=== PATIENT | female | born 1985 | race Caucasian/White ===

== ENCOUNTER 2022-11-07 20:26 | Emergency (ER) | payer MEDICAID, SELFPAY ==
[2022-11-07 20:51] VITALS: BP 141/91; PULSE 83; RESP 16; TEMP 36.4; O2SAT 98; BMI 26.6
--- NOTE | 2022-11-07 21:04 | ED.DENTAL1 ---
HPI - Dental/Oral General Chief complaint: Dental/Oral Stated complaint: DENTAL PAIN Time Seen by Provider: 11/07/22 21:01 Source: patient Mode of arrival: walk-in History of Present Illness HPI Narrative: patient is a 37-year-old female who presents to the emergency Department for pain in tooth #9, the tooth broke one week ago and patient reports an increase in pain, swelling to the gumline and a metal taste in her mouth. She has had no fevers or vomiting. She denies possibility of . She is regular smoker. Related Data Home Medications Medication Instructions Recorded Confirmed No Known Home Medications 11/07/22 11/07/22 Previous Rx's Medication Instructions Recorded clindamycin HCl 150 mg capsule 300 mg PO Q6H 10 days #80 caps 11/07/22 ketorolac 10 mg tablet 10 mg PO TID PRN pain #10 tabs 11/07/22 ondansetron 4 mg disintegrating 4 mg PO Q6H PRN nausea and 11/07/22 tablet vomiting #12 tabs Allergies Allergy/AdvReac Type Severity Reaction Status Date / Time No Known Drug Allergies Allergy Verified 11/07/22 20:51 Review of Systems ROS Constitutional Denies: fever or chills Ears, nose, mouth, and throat Denies: throat pain Respiratory Denies: shortness of breath or cough Gastrointestinal Denies: nausea or vomiting Musculoskeletal Denies: back pain Integumentary/Breast Denies: rash Neurological Denies: headache Endocrine Denies: excessive urination Allergic/Immunologic Denies: hives Exam Narrative Exam Narrative: Gen.: Awake, alert, in no distress Head: Normocephalic, atraumatic ENT: Moist mucous membranes, multiple dental caries and poor dental hygiene. Tooth #9 is broken at the mid tooth, gumline is mildly edematous with no focal abscess or drainage. No trismus or drooling. No redness or swelling under the tongue. Airway widely open and patent with clear speech. Respiratory: No respiratory distress Extremities: Moves extremities equally Psych: Normal mood and affect Neuro: No focal neuro deficit Skin: Warm, dry, intact Constitutional Vital Signs, click to edit/add: Last Vital Signs Temp 97.6 F 11/07/22 20:51 Pulse 83 11/07/22 20:51 Resp 16 11/07/22 20:51 BP 141/91 H 11/07/22 20:51 Pulse Ox 98 11/07/22 20:51 O2 Del Method Room Air 11/07/22 21:00 Course Vital Signs Vital signs: Vital Signs Temperature 97.6 F 11/07/22 20:51 Pulse Rate 83 11/07/22 20:51 Respiratory Rate 16 11/07/22 20:51 Blood Pressure 141/91 H 11/07/22 20:51 Pulse Oximetry 98 11/07/22 20:51 Oxygen Delivery Method Room Air 11/07/22 20:51 Temperature 97.6 F 11/07/22 20:51 Pulse Rate 83 11/07/22 20:51 Respiratory Rate 16 11/07/22 20:51 Blood Pressure 141/91 H 11/07/22 20:51 Pulse Oximetry 98 11/07/22 20:51 Oxygen Delivery Method Room Air 11/07/22 21:00 MDM - Dental/Oral MDM Narrative Medical decision making narrative: exam is consistent with dental caries, possible early dental infection with no focal abscess at this time. Patient treated with topical analgesia, ten days of clindamycin and NSAIDs for comfort. She is referred to dental clinic. Return to the Emergency Room if symptoms change or worsen. Attending physician attestation I have reviewed the mid-level documentation, agree with the documentation, medical decision making and treatment plan as outlined by the mid-level provider. Medical Records Attestation: I reviewed the patient's medical records. Discharge Plan Discharge Chief Complaint: Dental/Oral Clinical Impression: Dental caries, Toothache, Fracture of tooth Patient Disposition: Home, Self-Care Time of Disposition Decision: 21:02 Condition: Good Prescriptions / Home Meds: New clindamycin HCl 150 mg capsule 300 mg PO Q6H 10 Days Qty: 80 0RF ketorolac 10 mg tablet 10 mg PO TID PRN (Reason: pain) Qty: 10 0RF ondansetron 4 mg tablet,disintegrating 4 mg PO Q6H PRN (Reason: nausea and vomiting) Qty: 12 0RF No Action No Known Home Medications Instructions: Toothache (ED) Additional Instructions: Follow up dental Stand Alone Forms: Portal Instructions Referrals: Physician,Non-Staff, MD [Primary Care Provider] - 1 week Discharge Date/Time: 11/07/22 21:43
[2022-11-07] MEDS: BENZOCAINE 30 ML, lidocaine HCL 15 ML MM (21:29)
== END 2022-11-07 21:43 | disposition home or self-care (01) ==
PROVIDERS: Emergency Provider Emergency Medicine
DX: S02.5XXA Fracture of tooth (traumatic), initial encounter for closed fracture (principal); K02.9 Dental caries, unspecified; K08.89 Other specified disorders of teeth and supporting structures; F17.210 Nicotine dependence, cigarettes, uncomplicated; X58.XXXA Exposure to other specified factors, initial encounter
CPT/HCPCS: 99283

== ENCOUNTER 2024-03-05 11:12 | Emergency (ER) | payer MEDICAID, SELFPAY ==
[2024-03-05 11:31] VITALS: BP 136/86; PULSE 75; TEMP 36.7; O2SAT 100; BMI 26.6
[2024-03-05 12:33] LABS: Influenza Virus A Antigen Negative; Influenza Virus B Antigen Negative; Internal Control Within Normal Limits; SARS-CoV-2 Ag NEGATIVE (NEGATIVE); Strep A Antigen Screen Negative
== END 2024-03-05 12:55 | disposition left against medical advice (07) ==
PROVIDERS: Emergency Provider Emergency Medicine
DX: J02.9 Acute pharyngitis, unspecified (principal); Z53.21 Procedure and treatment not carried out due to patient leaving prior to being seen by health care provider
CPT/HCPCS: 87070; 87804; 87811; 87880; 99281; 99283

== ENCOUNTER 2024-06-06 14:25 | Emergency (ER) | payer MEDICAID, SELFPAY ==
--- OUTSIDE RECORDS SUMMARY | 2024-06-06 14:37 | XMS_ITS | CCD ---
Author Organization [facility] Care Team Providers Care Associate Product Manager Name Role Phone HOUSE, SR CLEMENCIA Perkins Primary Care Unavailable MIKEY HOFF Referring Unavail able MARKER, DR ZHOU Admitting Unavailable MARKER, DR ZHOU Attending Unavailable MARKER, DR ZHOU Consulting Unavailable HOUSE, DR KHANNA Primary Care Unavailable HAY, DR TOM Attending Unavailable HAY, DR TOM Consulting Unavailable HAY, DR TOM Admitting Unavailable HOUSE, DR KHANNA Primary Care Unavailable HAY, DR TOM Attending Unavailable THEODORE, JULIEN KUMAR Consulting Unavailable HAY, DR TOM Admitting Unavailable HOUSE, DR KHANNA Primary Care Unavailable HOUSE, DR KHANNA Primary Care Unavailable MARKER, DR ZHOU Admitting Unavailable MARKER, DR ZHOU Attending Unavailable MARKER, DR ZHOU Consulting Unavailable CEDEÑO, EMY Admitting Unavailable CEDEÑO, EMY Attending Unavailable CEDEÑO, EMY Consulting Unavailable HOUSE, DR KHANNA Primary Care Unavailable Georgie Chow Unavailable Ivy Moreau Unavailable Allergies Allergy Classification Reported Allergen(s) Allergy Type Date of Onset Reaction(s) Facility (1 source) bee venom Drug allergy (disorder) 5 [facility] (1 source) Honey Drug allergy (disorder) 5 [facility] (1 source) Bee pollen Allergy to substance 4 [facility] (1 source) bee venom protein (honey bee) Allergy to substance 4 Unknown Reaction [facility] Medications Current Medications Medication Drug Class(es) Dates Sig (Normalized) Sig (Original) cephalexin 500 mg oral capsule (1 source) Cephalosporin Antibacterial Start: 01-29-2023 take 1 capsule by mouth every eight hours Cephalexin 500 MG 1 capsule Orally tid for 10 day(s) Jan, Active clindamycin 150 mg oral capsule (2 sources) Lincosamide Antibacterial take 2 capsules by mouth every six hours Clindamycin HCl 150 MG 2 capsules Orally every 6 hrs Active diphenhydrAMINE hydrochloride 25 mg oral tablet (1 source) Histamine-1 Receptor Antagonist take 1 tablet by mouth every twenty-four hours Benadryl Allergy 25 MG 1 tablet at bedtime as needed Orally Once a day Active doxycycline hyclate 100 mg oral capsule (2 sources) Tetracycline-class Drug Start: 11-13-2023 take 100 mg by mouth twice daily Doxycycline Hyclate Active 100 MG PO Twice daily 01 11November 13, 2023 12:00am Completed/Discontinued Medications Medication Drug Class(es) Dates Sig (Normalized) Sig (Original) amoxicillin 875 mg / clavulanate 125 mg oral tablet (4 sources) Penicillin-class Antibacterial Start: 09-01-2023 End: 11-13-2023 take 1 tablet by mouth every twelve hours Amoxicillin-Pot Clavulanate Discontinued 1 TAB PO Every 12 hours 07 02September 01, 2023 12:00am November 13, 2023 6:35pm Start: 11-16-2022 take 1 tablet by xiomara th every twelve hours Amoxicillin-Pot Clavulanate 875-125 MG 1 tablet Orally every 12 hrs for 10 days Oct, Not-Taking Benadryl Allergy 25 MG (1 source) take 1 tablet by xiomara th once daily at bedtime as needed Benadryl Allergy 25 MG 1 tablet at bedtime as needed Orally Once a day Not-Taking DayQuil Multi-Symptom (2 sources) DayQuil Multi-Sy mptom Not-Taking DayQuil Multi-Sy mptom Active Ketorolac (4 sources) Nonsteroidal Anti-inflammatory Drug, Cyclooxygenase Inhibitor Start: 12-21-2019 Toradol p er 15 mg Dec, 60 mg Start: 02-08-2019 Toradol per 15 mg Jan, 60 mg NyQuil (2 sources) NyQuil Not-Takin g NyQuil Active Problems Active Problems Problem Classification Problem Date Documented Da te Episodic/Chronic Disorders of teeth and jaw (14 sources) Other specified disorders of teeth and supporting structures; Translations: [Periodontal disease, unspecified] Onset: 12-07-2020 Episodic Other skin disorders (2 sources) Hidradenitis suppurativa; Translations: [Hidradenitis suppurativa] 09-01-2023 Episodic Other skin disorders (1 source) Hidradenitis suppurativa; Translations: [Hidradenitis] 09-01-2023 Episodic Other upper respiratory infections (4 sources) Acute pharyngitis, unspecified; Translations: [Streptococcal pharyngitis] Episodic Skin and subcutaneous tissue infections (4 sources) Cellulitis of left lower limb; Translations: [Local infection of the skin and subcutaneous tissue, unspecified] Episodic Substance-related disorders (1 source) Nicotine dependence, cigarettes, uncomplicated; Translations: [NICOTINE DEPEND CIGARETTES UNCOMP] Onset: 09-12-2021 Chronic Past or Other Problems Problem Classification Problem Date Documented Date Episodic/Chronic Immunizations and screening for infectious disease (1 source) Encounter for screening for human papillomavirus (HPV); Translations: [ENC SCREENING HUMAN PAPILLOMAVIRUS] Onset: 10-05-2020 Episodic Other ear and sense organ disorders (4 sources) Otalgia, bilateral; Translations: [OTALGIA BILATERAL] Onset: 01-23-2021 Episodic Other ear and sense organ disorders (4 sources) Otalgia, right ear; Translations: [OTALGIA RIGHT EAR] Onset: 12-06-2020 Episodic Other screening for suspected conditions (not mental disorders or infectious disease) (4 sources) Encounter for screening for malignant neoplasm of cervix; Translations: [ENC SCREENING MALIG NEOPLASM CERV] Onset: 10-02-2020 Episodic Other skin disorders (4 sources) Localized swelling, mass and lump, head; Translations: [LOCALIZED SWELLING MASS AND LUMP HEAD] Onset: 04-08-2021 Episodic Skull and face fractures (1 source) Fracture of tooth (traumatic), initial encounter for closed fracture; Translations: [FX TOOTH TRAUMAT INIT ENC CLOS FX] Onset: 01-25-2021 Episodic Results Test Name Value Interpretation Reference Range Facil ity Quick Strepon 11-16-2022 S. pyogenes Org specific cx Ql (Throat) Positive [facility] Other Quick Strep [facility] Other HPV DNA High Riskon 08-12-19 22 HPV Interp Normal [facility] Comment on above: Result Comment: This test amplifies and detects DNA of 14 high-risk HPV types associated with cervical cancer and its precursor lesions (HPV types 16,18, 31, 33, 35, 39, 45, 51, 52, 56, 58, 59, 66, and 68). Sensitivity may be affected by specimen collection methods, stage of infection, and the presence of interfering substances. Results should be interpreted in conjunction with other available laboratory and clinical data. A negative high-risk HPV result does not exclude the possibility of future cytologic HSIL or underlying CIN2-3 or cancer. This test is intended for medical purposes only and is not valid for the evaluation of suspected sexual abuse or for other forensic purposes. Performed By: #### H PVH #### [address] [address] Curriculum Supervisor: Izaiah Garza MD HPV Type 16 Not detected [facility] Comment on above: Performed By: #### HPVH #### [address] [address] Curriculum Supervisor: Izaiah Garza MD HPV Type 18 Not detected [facility] Comment on above: Performed By: #### HPVH #### [facility] [employer] [address] [place] [id number] Curriculum Supervisor: Izaiah Garza MD Other High Risk HPV Not detected [facility] Comment on above: Performed By: #### HPVH #### [address] [address] Curriculum Supervisor: Izaiah Garza MD HPV DNA High Riskon 08-10- 22 Source .GENITAL - NOT SPECIFIED [facility] Comment on above: Performed By: #### HPVH #### [facility] [employer] [address] [place] [address] Curriculum Supervisor: Izaiah Garza MD HPV DNA High Riskon 08-09-20 22 HPV Sample .THIN PREP [facility] Comment on above: Performed By: #### HPVH #### [address] [address] Curriculum Supervisor: Izaiah Garza MD Cytologyon 08-07-2021 Cytology (NOTE) INTERPRETATION Cervical material, (ThinPrep vial, Imaging-assisted review): Specimen Adequacy: Satisfactory for evaluation. -Endocervical/transfor mation zone component is absent. Descriptive Diagnosis: Negative for intraepithelial lesion or malignancy. Supervisor Sandblaster: JUSTINA Miller(ASCP) Electronically Signed Out /08/15/2021 Procedure/Addendum HPV Procedure Report Date Ordered: 08/09/2021 Status: Signed Out Date Complete: 08/11/2021 By: System Interface Date Reported: 08/11/2021 Sample: HPV Type 16 Result: Not Detected Ref Range: (Not Detected) Sample: HPV Type 18 Result: Not Detected Ref Range: (Not Detected) Sample: Other High Risk HPV Result: Not Detected Ref Range: (Not Detected) Sample: HPV Interp Result: Ref Range: (Not Detected) This test amplifies and detects DNA of 14 high-risk HPV types associated with cervical cancer and its precursor lesions (HPV types 16,18, 31, 33, 35, 39, 45, 51, 52, 56, 58, 59, 66, and 68). Sensitivity may be affected by specimen collection methods, stage of infection, and the presence of interfering substances. Results should be interpreted in conjunction with other available laboratory and clinical data. A negative high-risk HPV result does not exclude the possibility of future cytologic HSIL or underlying CIN2-3 or cancer. This test is intended for medical purposes only and is not valid for the evaluation of suspected sexual abuse or for other forensic purposes. Source: A: Cervical material, (ThinPrep vial, Imaging-assisted review) Clinical History Z01.419 Routine trans router exam without abnormal findings Co-Test: ThinPrep Pap with high risk HPV testing GYNECOLOGIC CYTOLOGY REPORT Patient Name: ADRIENNE PATEL [facility] Rec: [id number] Path Number: [id number] [facility] ANATOMIC PATHOLOGY [address] [place] [id number] [facility] Comment on above: Performed By: #### PPPVP #### [facility] [address] [place] [address] Curriculum Supervisor: Izaiah Garza MD Pap IG, rfx Aptima HPV, rfx 16/18,45on 10-05-2020 . . Normal [facility] Comment on above: Result Comment: Performed at: WB Performed By: #### P APHR2A #### [facility] [address] [place] [address] Tamara Mars DIAGNOSIS: Comment Normal [facility] Comment on above: Result Comment: NEGATIVE FOR INTRAEPITHE LIAL LESION OR MALIGNANCY. Performed at: WB Performed By: #### P APHR2A #### [facility] [address] [address] Tamara Madisyn HPV Aptima Negative Normal Negative [facility] Comment on above: Result Comment: This nucleic acid amplif ication test detects fourteen high-risk HPV types (16,18,31,33,35,39,45,51,52,56,58,59,66,68) without differentiation. Performed at: =G Performed By: #### P APHR2A #### [facility] [address] [place] [address] Tamara Mars Methodology: Comment Normal [facility] Comment on above: Result Comment: This liquid based ThinPr ep(R) pap test was screened with the use of an image guided system. Performed at: WB Performed By: #### P APHR2A #### [facility] [address] [place] [address] Tamara Madisyn Note: Comment Normal [facility] Comment on above: Result Comment: The Pap smear is a scree janny test designed to aid in the detection of premalignant and malignant conditions of the uterine cervix. It is not a diagnostic procedure and should not be used as the sole means of detecting cervical cancer. Both false-positive and false-negative reports do occur. . Performed at: WB Performed By: #### P APHR2A #### [facility] [address] [place] [address] Tamara Madisyn Performed by: Comment Normal [facility] Comment on above: Result Comment: Jumana guzman, Supervisor Sandblaster (ASCP) Performed at: WB Performed By: #### P APHR2A #### [facility] [address] [place] [address] Tamara Mars Specimen adequacy: Comment Normal [facility] Comment on above: Result Comment: Satisfactory for evaluat ion. Endocervical and/or squamous metaplastic cells (endocervical component) are present. Performed at: WB Performed By: #### P APHR2A #### [facility] [address] [place], [place] [address] Tamara Mars Vital Signs Date Time Vital Sign Value Performing Clinician Facility 01-14-2024 14:53-0400 Body height 162.56 cm [facility] 01-14-2024 14:53-0400 Body mass index (BMI) [Ratio] 27.4 kg/m2 [facility] 01-14-2024 14:53-0400 Body temperature 97.8 [degF] [facility] 01-14-2024 14:53-0400 Body weight 72.63 kg [facility] 01-14-2024 14:53-0400 Diastolic blood pressure 74 mm[Hg] [facility] 01-14-2024 14:53-0400 Heart rate 77 /min [facility] 01-14-2024 14:53-0400 Respiratory rate 17 /min [facility] 01-14-2024 14:53-0400 SaO2% (BldA) [Mass fraction] 98 % [facility] 01-14-2024 14:53-0400 Systolic blood pressure 122 mm[Hg] [facility] 11-13-2023 18:40-0400 Body height 165.1 cm [facility] 11-13-2023 18:40-0400 Body mass index (BMI) [Ratio] 25.1 kg/m2 [facility] 11-13-2023 18:40-0400 Body temperature 98.4 [degF] [facility] 11-13-2023 18:40-0400 Body weight 68.49 kg [facility] 11-13-2023 18:40-0400 Heart rate 69 /min [facility] 11-13-2023 18:40-0400 Respiratory rate 18 /min [facility] 11-13-2023 18:40-0400 SaO2% (BldA) [Mass fraction] 99 % [facility] 09-01-2023 17:19-0400 Body height 165.1 cm [facility] 09-01-2023 17:19-0400 Body mass index (BMI) [Ratio] 26.9 kg/m2 [facility] 09-01-2023 17:19-0400 Body temperature 98.4 [degF] [facility] 09-01-2023 17:19-0400 Body weight 73.25 kg [facility] 09-01-2023 17:19-0400 Diastolic blood pressure 75 mm[Hg] [facility] 09-01-2023 17:19-0400 Heart rate 77 /min [facility] 09-01-2023 17:19-0400 Respiratory rate 18 /min [facility] 09-01-2023 17:19-0400 SaO2% (BldA) [Mass fraction] 99 % [facility] 09-01-2023 17:19-0400 Systolic blood pressure 119 mm[Hg] [facility] 01-29-2023 13:55-0400 Body height 165.1 cm Ivy Lizzeth Other [facility] [employer] Other 01-29-2023 13:55-0400 Body mass index (BMI) [Ratio] 27.95 kg/m2 Ivy Lizzeth Other [facility] Other 01-29-2023 13:55-0400 Body temperature 97.7 [degF] Ivy Lizzeth Other [facility] Other 01-29-2023 13:55-0400 Body weight 76.2 kg Ivy Lizzeth Other [facility] Other 01-29-2023 13:55-0400 Diastolic blood pressure 74 mm[Hg] Ivy Lizzeth Other [facility] Other 01-29-2023 13:55-0400 Respiratory rate 18 /min Ivy Moreau Other [facility] Other 01-29-2023 13:55-0400 SaO2% (BldA) [Mass fraction] 98 % Ivy Moreau Other [facility] Other 01-29-2023 13:55-0400 Systolic blood pressure 124 mm[Hg] Ivy Moreau Other [facility] Other 11-16-2022 12:25-0400 Body height 165.1 cm Georgie Chow Other [facility] Other 11-16-2022 12:25-0400 Body mass index (BMI) [Ratio] 27.39 kg/m2 Georgie Chow Other [facility] Other 11-16-2022 12:25-0400 Body temperature 98.1 [degF] Georgie Chow Other [facility] Other 11-16-2022 12:25-0400 Body weight 74.66 kg Georgie Chow Other [facility] Other 11-16-2022 12:25-0400 Respiratory rate 18 /min Georgie Chow Other [facility] Other 11-16-2022 12:25-0400 SaO2% (BldA) [Mass fraction] 97 % Georgie Chow Other [facility] Other Encounters Encounter Date Encounter Type Care Provider Facility Start: 01-14-2024 End: 01-14-2024 [facility] Work Phone: Start: 01-14-2024 End: 01-14-2024 Patient encounter procedure Counts Include [facility] Work Phone: Start: 11-13-2023 End: 11-13-2023 ambulatory [facility] Work Phone: Start: 11-13-2023 End: 11-13-2023 Patient encounter procedure Counts Include [facility] Work Phone: Start: 09-01-2023 End: 09-01-2023 ambulatory [facility] Work Phone: Start: 09-01-2023 End: 09-01-2023 Patient encounter procedure Counts Include [facility] Work Phone: Start: 01-29-2023 End: 01-29-2023 ambulatory Ivy Moreau Other [facility] Other Start: 01-29-2023 Office outpatient vi sit 15 minutes Ivymaikel Moreau [facility] Start: 11-16-2022 End: 11-16-2022 ambulatory Georgie Chow Other [facility] Other Start: 11-16-2022 Office outpatient vi sit 15 minutes Georgie Chow [facility] Start: 09-11-2021 End: 09-11-[address] CLEMENCIA ZAMORA Facility:[facility] Start: 08-07-2021 End: 08-08-2021 ambulatory SR CLEMENCIA ZAMORA [facility] Start: 04-08-2021 End: 04-08-[address] VAISHALI KELLY Facility:[facility] Start: 01-23-2021 End: 01-23-[address] VAISHALI KELLY Facility:[facility] Start: 12-06-2020 End: 12-06-[address] WINNIE DEL ANGEL Facility:[facility] Start: 10-02-2020 End: 10-02-2020 ambulatory EMY CEDEÑO Facility:[facility] Payers Date Payer Category Payer Unknown [id number] 2.16.8 [id number] 1987 Unknown [id number] 2.16.84 [id number] 1987 Unknown [id number] 2.16.84 [id number] 1987 Unknown [id number] 2.16.84 [id number] 1987 Unknown [id number] 2.16.84 [id number] 1987 Unknown [id number] 2.16.84 [id number] 1959 Unknown [id number] 1959 Unknown [id number] Medicaid [id number] Self-pay Self Pay [id number] Social History Date Type Detail Facility Unknown if ever smoked [facility] Other Sex Assigned At Sex Assigned At Bir th [facility] Other Start: 09-01-2023 Tobacco smoking status [facility] Smoker (finding) [facility] Start: 1985 Sex Assigned At Female F [facility] Evaluation note 01-29-2023 Note Date & Type Note Facility 01-29-2023 Evaluation note Encounter Date Diagnosis Assessment Notes Jan, Cellulitis of left lower leg (ICD-10 - L03.116) Cellulitis: adult home care material was printed Drink plenty fluids, get plenty of rest. Take cephalexin as prescribed until gone. Apply warm compresses to the areas 2-3 times a day. Take Benadryl as needed for itching. You may apply hydrocortisone cream to the area as well. Follow-up with your family physician if no improvement in 2 to 3 days Jan, Local infection of the skin and subcutaneous tissue, unspecified (ICD-10 - L08.9) [facility] Other Evaluation note 11-16-2022 Note Date & Type Note Facility 11-16-2022 Evaluation note Encounter Date Diagnosis Assessment Notes Oct, Sore throat (ICD-10 - J02.9) Oct, Strep pharyngitis (ICD-10 - J02.0) Rapid strep positive. Discussed strep is a bacterial throat infection. Will treat with augmentin, has completed 7-1/2 days of clindamycin for dental infection. Strep still remains positive in office. Discontinue clindamycin. Covering with Augmentin for strep and any remaining dental infection. Discussed importance of finishing entire course of antibiotic. Recommend changing toothbrush and washing bedding after 48 hours on antibiotic to avoid re-exposure. Discussed less contagious after 24 hours on antibiotic. Avoid sharing cups or drinks. May use Tylenol/ibuprofe n, warm salt water gargles, topical throat sprays or throat lozenges for symptomatic treatment. Fluids/rest encouraged. Follow-up with PCP if not gradually improving over the next 4 to 5 days or continuing fever. Patient/parent verbalized understanding of treatment plan. [facility] Other Evaluation note Note Date & Type Note Facility Evaluation note No assessment information availa [facility] Work Phone: Evaluation note Note Date & Type Note Facility Evaluation note Diagnosis Onset Date Dental infection acute Hidradenitis suppurativa acu te Jaw pain acute [facility] Work Phone: Evaluation note Note Date & Type Note Facility Evaluation note Diagnosis Onset Date Abscess of buttock, left acu te Viral URI with cough [facility] Work Phone: History general Narrative - Reported Note Date & Type Note Facility History general Narrative - Reported Type Medical History Scoliosis Medical History fibromyalgia Medical History mood disorder Surgical History etopic wit h the removal of her tube and ovary. Left side. 2005 Hospitalization History see above Hospitalization History child [facility] Other Summary Purpose Family History Relationship Condition Age at Onset Recorded Date/T cody father Unknown Hypertension Unknown Not Specified Malignant neoplasm Unknown Unknown Relationship Condition Age at Onset Recorded Date/T cody father Unknown Hypertension Unknown mother Malignant neoplasm Unknown Unknown Advance Directives Advance Directive Response Recorded Date/ Time Advance Directives No August 31 4 5:12pm Chief Complaint and Reason for Visit Chief Complaint rash on face/neck,antony il on thigh,infected tooth Chief Complaint rash on face/neck,antony il on thigh,infected tooth Sore throat, congestion, bug bite on buttocks Reason for Visit Dental infection Hidradenitis suppurativa Jaw pain Chief Complaint Sore throat, congest ion, bug bite on buttocks Sinus congestion Reason for Visit Abscess of buttock, left Viral URI with cough Additional Source Comments INFORMATION SOURCE (unrecogn ized section and content) DATE CREATED AUTHOR 08/18/2021 [facility] DATE CREATED AUTHOR AUTHOR'S ORGANIZ ATION 09/13/2021 [facility] REASON FOR VISIT (unrecogniz ed section and content) FEELS HOT AND THEN COLD, SOR E THROAT, DRAINAGESPIDER BITE, SWELLING AND PAIN Care Teams (unrecognized sec tion and content) Team Status: Active Member Role Status Dates PHYSICIAN NO FAMILY Primary Care Provider Active Team Status: Inactive Member Role Status Dates PHYSICIAN NO FAMILY Primary Care Provider Active Start: September 01, 2023 End: September 01, 2023 Georgie Chow APRN Attending Provider Active Start: September 01, 2023 End: September 01, 2023 Team Status: Inactive Member Role Status Dates PHYSICIAN NO FAMILY Primary Care Provider Active Start: November 13, 2023 End: November 13, 2023 Georgie Chow APRN Attending Provider Active Start: November 13, 2023 End: November 13, 2023 Team Status: Inactive Member Role Status Dates PHYSICIAN NO FAMILY Primary Care Provider Active Start: January 14, 2024 End: January 14, 2024 Shelby Rosales APRN Attending Provider Active S tart: January 14, 2024 End: January 14, 2024 Goals (unrecognized section and content) Goals may be documented in a n alternate section FOR RECORDS PERTAINING TO PATIENTS WHO ARE OR HAVE BEEN ENROLLED IN A CHEMICAL DEPENDENCY/SUBSTANCEABUSE PROGRAM, SOME INFORMATION MAY BE OMITTED. This clinical summary was aggregated from multiple sources. Caution should be exercised in using it in the provision of clinical care. This summary normalizes information from multiple sources, and as a consequence, information in this document may materially change the coding, format and clinical context of patient data. In addition, data may be omitted in some cases. CLINICAL DECISIONS SHOULD BE BASED ON THE PRIMARY CLINICAL RECORDS. [facility] [employer] [facility]. provides no warranty or guarantee of the accuracy or completeness of information in this document.
[2024-06-06 14:59] VITALS: BP 134/81; PULSE 88; TEMP 36.6; O2SAT 99; BMI 28.3
--- NOTE | 2024-06-06 15:28 | ED_ITS ---
HPI - URI/Sore Throat General Chief Complaint: Upper Respiratory Infection Stated Complaint: URTI COMPLAINTS Time Seen by Provider: 06/06/24 15:14 Source: patient History of Present Illness HPI Narrative: Patient is a 39-year-old female who presents to the emergency department for a weeklong history of cough and congestion. She is also complaining of an acne- like rash over the upper back. Her son is being evaluated for upper respiratory symptoms as well. She reports nonproductive coughing, nasal and chest congestion. No objective fevers. No vomiting or diarrhea. She has no concern for . She states she has a history of acne but feels as though this rash to her upper back for the last several weeks is worse than normal. No drainage. Related Data Home Medications ?Medication ?Instructions ?Recorded ?Confirmed dextromethorphan HBr 5 mg/5 mL 30 mg PO ONCE PRN cough 06/06/24 06/06/24 oral syrup (Vicks DayQuil Cough) Previous Rx's ?Medication ?Instructions ?Recorded amoxicillin 875 mg-potassium 1 tab PO Q12H #20 tabs 06/06/24 clavulanate 125 mg tablet ucifnyltzvsaywc-voucgetokotuuxd-BF 10 ml PO Q6H PRN cold symptoms 06/06/24 2 mg-30 mg-10 mg/5 mL oral syrup #200 mL (Bromfed DM) fluconazole 150 mg tablet 150 mg PO QWEEK 2 days #2 tabs 06/06/24 mupirocin 2 % topical ointment 1 applic topical BID #15 grams 06/06/24 Allergies Allergy/AdvReac Type Severity Reaction Status Date / Time No Known Drug Allergies Allergy Verified 06/06/24 14:58 Review of Systems ROS Constitutional Denies: fever or chills Ears, nose, mouth, and throat Reports: nasal congestion; Denies: throat pain Cardiovascular Denies: chest pain Respiratory Reports: cough; Denies: shortness of breath Gastrointestinal Denies: nausea, vomiting or diarrhea Integumentary/Breast Reports: rash and redness Hematologic/Lymphatic Denies: easy bruising or easy bleeding PFSH PFSH Social History Little interest or pleasure in doing things: not at all Feeling down, depressed, or hopeless: not at all Exam Narrative Exam Narrative: Gen.: Awake, alert, in no distress Head: Normocephalic, atraumatic ENT: Moist mucous membranes, bilateral TMs clear Respiratory: No respiratory distress, lungs clear bilaterally, dry cough with no wheezing or rhonchi Cardio: Regular rate and rhythm Extremities: Moves extremities equally Psych: Normal mood and affect Neuro: No focal neuro deficit Skin: Warm, dry, intact; rash to the thoracic back and posterior shoulders noted consistent with acne versus folliculitis with occasional pustules noted Constitutional Vital Signs, click to edit/add: Last Vital Signs Temp 97.8 F 06/06/24 14:59 Pulse 88 06/06/24 14:59 Resp 14 06/06/24 14:59 BP 134/81 06/06/24 14:59 Pulse Ox 99 06/06/24 14:59 O2 Del Method Room Air 06/06/24 14:59 Course Vital Signs Vital signs: Vital Signs Temperature 97.8 F 06/06/24 14:59 Pulse Rate 88 06/06/24 14:59 Respiratory Rate 14 06/06/24 14:59 Blood Pressure 134/81 06/06/24 14:59 Pulse Oximetry 99 06/06/24 14:59 Oxygen Delivery Method Room Air 06/06/24 14:59 Temperature 97.8 F 06/06/24 14:59 Pulse Rate 88 06/06/24 14:59 Respiratory Rate 14 06/06/24 14:59 Blood Pressure 134/81 06/06/24 14:59 Pulse Oximetry 99 06/06/24 14:59 Oxygen Delivery Method Room Air 06/06/24 14:59 MDM - URI/Sore Throat MDM Narrative Medical decision making narrative: Respiratory swabs are negative, patient will be treated based on the duration for her upper respiratory symptoms and acne/folliculitis type rash to the back with Augmentin, Bromfed-DM and Bactroban ointment. Decadron given in the ER. She request Diflucan for history of yeast infections. Follow-up with PCP and return to the ER if symptoms change or worsen SUPERVISED APC VISIT, PHYSICIAN ATTESTATION: Based on the medical record the care appears appropriate. ? Medical Records Attestation: I reviewed the patient's medical records. Lab Data Labs: Lab Results 06/06/24 Range/Units 15:05 Influenza Type A Ag Negative Influenza Type B Ag Negative SARS-CoV-2 Ag (CV2AG) Negative (NEGATIVE) Discharge Plan Discharge Chief Complaint: Upper Respiratory Infection Clinical Impression: Upper respiratory infection, Folliculitis Patient Disposition: Home, Self-Care Time of Disposition Decision: 15:47 Condition: Good Prescriptions / Home Meds: New mupirocin 2 % ointment 1 applic topical BID Qty: 15 0RF ekqmnfeejhrsqul-pwxfbhibn-YE [Bromfed DM] 2-30-10 mg/5 mL syrup 10 ml PO Q6H PRN (Reason: cold symptoms) Qty: 200 0RF amoxicillin-pot clavulanate 875-125 mg tablet 1 tab PO Q12H Qty: 20 0RF fluconazole 150 mg tablet 150 mg PO QWEEK 2 Days Qty: 2 0RF Rx Instructions: 1 tab to be taken at the beginning and end of the course of antibiotics No Action Vicks DayQuil Cough 5 mg/5 mL syrup 30 mg PO ONCE PRN (Reason: cough) Print Language: Nigerian Instructions: Upper Respiratory Infection (ED), Folliculitis (ED) Referrals: Physician,Non-Staff, MD [Primary Care Provider] - 1 week
[2024-06-06 15:34] LABS: Influenza Virus A Antigen Negative; Influenza Virus B Antigen Negative; Internal Control Within Normal Limits; SARS-CoV-2 Ag NEGATIVE (NEGATIVE)
[2024-06-06] MEDS: DEXAMETHASONE SOD PHOS 10 MG/ML VIAL PO (15:38)
== END 2024-06-06 15:52 | disposition home or self-care (01) ==
PROVIDERS: Emergency Provider Emergency Medicine
DX: J06.9 Acute upper respiratory infection, unspecified (principal); L73.9 Follicular disorder, unspecified
CPT/HCPCS: 87804; 87811; 99283; J1100

== ENCOUNTER 2024-07-11 14:13 | Emergency (ER) | payer MEDICAID, SELFPAY ==
[2024-07-11 14:16] VITALS: BP 122/70; PULSE 70; TEMP 36.7; O2SAT 98; BMI 24.9
--- OUTSIDE RECORDS SUMMARY | 2024-07-11 14:22 | XMS_ITS | CCD ---
Author Organization [facility] Care Team Providers Care Powerhouse Oiler Name Role Phone HOUSE, SR CLEMENCIA Perkins [...] bee venom Drug allergy (disorder) 5 [facility] (1 source) Honey Drug allergy (disorder) 5 [facility] (1 source) Bee pollen Allergy to substance 4 [facility] (1 source) bee venom protein (honey bee) Allergy to substance 4 Unknown Reaction [facility] Medications Current Medications Medication Drug Class(es) Dates [...] pyogenes Org specific cx Ql (Throat) Positive [facility] Other Quick Strep [facility] Other HPV DNA High Riskon 08-12-19 22 HPV Interp Normal [facility] Comment on above: Result Comment: This test [...] purposes. Performed By: #### H PVH #### [address] [address] [employer] Shipper: Izaiah Garza MD HPV Type 16 Not detected [facility] Comment on above: Performed By: #### HPVH #### [address] [address] [employer] Shipper: Izaiah Garza MD HPV Type 18 Not detected [facility] Comment on above: Performed By: #### HPVH #### [facility] [address] [place] [address] [employer] Shipper: Izaiah Garza MD Other High Risk HPV Not detected [facility] Comment on above: Performed By: #### HPVH #### [address] [address] [employer] Shipper: Izaiah Garza MD HPV DNA High Riskon 08-10- 22 Source .GENITAL - NOT SPECIFIED [facility] Comment on above: Performed By: #### HPVH #### [facility] [address] [place] [address] [employer] Shipper: Izaiah Garza MD HPV DNA High Riskon 08-09-20 22 HPV Sample .THIN PREP [facility] Comment on above: Performed By: #### HPVH #### [address] [address] [employer] Shipper: Izaiah Garza MD Cytologyon 08-07-2021 Cytology (NOTE) INTERPRETATION Cervical material, (ThinPrep vial, Imaging-assisted review): Specimen Adequacy: Satisfactory for evaluation. -Endocervical/transfor mation zone component is absent. Descriptive Diagnosis: Negative for intraepithelial lesion or malignancy. [employer] Maker: JUSTINA Miller(ASCP) Electronically Signed Out /08/15/2021 Procedure/Addendum [...] vial, Imaging-assisted review) Clinical History Z01.419 Routine steward/stewardess economy class exam without abnormal findings Co-Test: ThinPrep Pap with high risk HPV testing GYNECOLOGIC CYTOLOGY REPORT Patient Name: ADRIENNE PATEL [facility] Rec: [id number] Path Number: [id number] [employer] [facility] ANATOMIC PATHOLOG[facility] [address] [place] [id number] [facility] Comment on above: Performed By: #### PPPVP #### [employer] [address] [place] [address] [employer] Shipper: Izaiah Garza MD Pap IG, rfx Aptima HPV, rfx 16/18,45on 10-05-2020 . . Normal [facility] Comment on above: Result Comment: Performed at: WB Performed By: #### P APHR2A #### [facility] [address] [place] [address] Tamara Mars DIAGNOSIS: Comment Normal [facility] Comment on above: Result Comment: NEGATIVE FOR INTRAEPITHE LIAL LESION OR MALIGNANCY. Performed at: WB Performed By: #### P APHR2A #### [facility] [address] [address] Tamara Madisyn HPV Aptima Negative Normal Negative [facility] Comment on above: Result Comment: This nucleic acid amplif ication test detects fourteen high-risk HPV types (16,18,31,33,35,39,45,51,52,56,58,59,66,68) without differentiation. Performed at: =G Performed By: #### P APHR2A #### [facility] [address] [place] [address] Tamara Mars Methodology: Comment Normal [facility] Comment on above: Result Comment: This liquid based ThinPr ep(R) pap test was screened with the use of an image guided system. Performed at: WB Performed By: #### P APHR2A #### [facility] [address] [place] [address] Tamara Madisyn Note: Comment Normal [facility] Comment on above: Result Comment: The Pap [...] WB Performed By: #### P APHR2A #### [facility] [address] [place] [address] Tamara Madisyn Performed by: Comment Normal [facility] Comment on above: Result Comment: Jumana guzman, [employer] (ASCP) Performed at: WB Performed By: #### P APHR2A #### [facility] [address] [place] [address] Tamara Mars Specimen adequacy: Comment Normal [facility] Comment on above: Result Comment: Satisfactory for evaluat ion. Endocervical and/or squamous metaplastic cells (endocervical component) are present. Performed at: WB Performed By: #### P APHR2A #### [facility] [address] [place], [place] [address] Tamara Mars Vital Signs Date Time Vital Sign Value Performing Clinician Facility 01-14-2024 14:53-0400 Body height 162.56 cm [facility] 01-14-2024 14:53-0400 Body mass index (BMI) [Ratio] 27.4 kg/m2 [facility] 01-14-2024 14:53-0400 Body temperature 97.8 [degF] [facility] 01-14-2024 14:53-0400 Body weight 72.63 kg [facility] 01-14-2024 14:53-0400 Diastolic blood pressure 74 mm[Hg] [facility] 01-14-2024 14:53-0400 Heart rate 77 /min [facility] 01-14-2024 14:53-0400 Respiratory rate 17 /min [facility] 01-14-2024 14:53-0400 SaO2% (BldA) [Mass fraction] 98 % [facility] 01-14-2024 14:53-0400 Systolic blood pressure 122 mm[Hg] [facility] 11-13-2023 18:40-0400 Body height 165.1 cm [facility] 11-13-2023 18:40-0400 Body mass index (BMI) [Ratio] 25.1 kg/m2 [facility] 11-13-2023 18:40-0400 Body temperature 98.4 [degF] [facility] 11-13-2023 18:40-0400 Body weight 68.49 kg [facility] 11-13-2023 18:40-0400 Heart rate 69 /min [facility] 11-13-2023 18:40-0400 Respiratory rate 18 /min [facility] 11-13-2023 18:40-0400 SaO2% (BldA) [Mass fraction] 99 % [facility] 09-01-2023 17:19-0400 Body height 165.1 cm [facility] 09-01-2023 17:19-0400 Body mass index (BMI) [Ratio] 26.9 kg/m2 [facility] 09-01-2023 17:19-0400 Body temperature 98.4 [degF] [facility] 09-01-2023 17:19-0400 Body weight 73.25 kg [facility] 09-01-2023 17:19-0400 Diastolic blood pressure 75 mm[Hg] [facility] 09-01-2023 17:19-0400 Heart rate 77 /min [facility] 09-01-2023 17:19-0400 Respiratory rate 18 /min [facility] 09-01-2023 17:19-0400 SaO2% (BldA) [Mass fraction] 99 % [facility] 09-01-2023 17:19-0400 Systolic blood pressure 119 mm[Hg] [facility] 01-29-2023 13:55-0400 Body height 165.1 cm Ivy Lizzeth Other [facility] [employer] Other 01-29-2023 13:55-0400 Body mass index (BMI) [Ratio] 27.95 kg/m2 Ivy Lizzeth Other [facility] Other 01-29-2023 13:55-0400 Body temperature 97.7 [degF] Ivy Lizzeth Other [facility] Other 01-29-2023 13:55-0400 Body weight 76.2 kg Ivy Lizzeth Other [facility] Other 01-29-2023 13:55-0400 Diastolic blood pressure 74 mm[Hg] Ivy Lizzeth Other [facility] Other 01-29-2023 13:55-0400 Respiratory rate 18 /min Ivy Moreau Other [facility] Other 01-29-2023 13:55-0400 SaO2% (BldA) [Mass fraction] 98 % Ivy Moreau Other [facility] Other 01-29-2023 13:55-0400 Systolic blood pressure 124 mm[Hg] Ivy Moreau Other [facility] Other 11-16-2022 12:25-0400 Body height 165.1 cm Georgie Chow Other [facility] Other 11-16-2022 12:25-0400 Body mass index (BMI) [Ratio] 27.39 kg/m2 Georgie Chow Other [facility] Other 11-16-2022 12:25-0400 Body temperature 98.1 [degF] Georgie Chow Other [facility] Other 11-16-2022 12:25-0400 Body weight 74.66 kg Georgie Chow Other [facility] Other 11-16-2022 12:25-0400 Respiratory rate 18 /min Georgie Chow Other [facility] Other 11-16-2022 12:25-0400 SaO2% (BldA) [Mass fraction] 97 % Georgie Chow Other [facility] Other Encounters Encounter Date Encounter Type Care Provider Facility Start: 01-14-2024 End: 01-14-2024 [facility] Work Phone: Start: 01-14-2024 End: 01-14-2024 Patient encounter procedure [facility] Work Phone: Start: 11-13-2023 End: 11-13-2023 ambulatory [facility] Work Phone: Start: 11-13-2023 End: 11-13-2023 Patient encounter procedure [facility] Work Phone: Start: 09-01-2023 End: 09-01-2023 ambulatory [facility] Work Phone: Start: 09-01-2023 End: 09-01-2023 Patient encounter procedure [facility] Work Phone: Start: 01-29-2023 End: 01-29-2023 ambulatory Ivy Moreau Other [facility] Other Start: 01-29-2023 Office outpatient vi sit 15 minutes Ivymaikel Moreau [facility] Start: 11-16-2022 End: 11-16-2022 ambulatory Georgie Chow Other [facility] Other Start: 11-16-2022 Office outpatient vi sit 15 minutes Georgie Chow [facility] Start: 09-11-2021 End: 09-11-[address] CLEMENCIA ZAMORA Facility:[facility] Start: 08-07-2021 End: 08-08-2021 ambulatory SR CLEMENCIA ZAMORA [facility] Start: 04-08-2021 End: 04-08-[address] VAISHALI KELLY Facility:[facility] Start: 01-23-2021 End: 01-23-[address] VAISHALI KELLY Facility:[facility] Start: 12-06-2020 End: 12-06-[address] WINNIE DEL ANGEL Facility:[facility] Start: 10-02-2020 End: 10-02-2020 ambulatory EMY CEDEÑO Facility:[facility] Payers Date Payer Category Payer Unknown [id number] 2.16.8 [id number] 1987 Unknown [id number] 2.16.84 [id number] 1987 Unknown [id number] 2.16.84 [id number] 1987 Unknown [id number] 2.16.84 [id number] 1987 Unknown [id number] 2.16.84 [id number] 1987 Unknown [id number] 2.16.84 [id number] 1959 Unknown [id number] 1959 Unknown [id number] Medicaid [id number] Self-pay Self Pay [id number] Social History Date Type Detail Facility Unknown if ever smoked [facility] Other Sex Assigned At Sex Assigned At Bir th [facility] Other Start: 09-01-2023 Tobacco smoking status [facility] Smoker (finding) [facility] Start: 1985 Sex Assigned At Female F [facility] Evaluation note 01-29-2023 Note Date & Type [...] and subcutaneous tissue, unspecified (ICD-10 - L08.9) [facility] Other Evaluation note 11-16-2022 Note Date & [...] fever. Patient/parent verbalized understanding of treatment plan. [facility] Other Evaluation note Note Date & Type Note Facility Evaluation note No assessment information availa [facility] Work Phone: Evaluation note Note Date & Type Note Facility Evaluation note Diagnosis Onset Date Dental infection acute Hidradenitis suppurativa acu te Jaw pain acute [facility] Work Phone: Evaluation note Note Date & Type Note Facility Evaluation note Diagnosis Onset Date Abscess of buttock, left acu te Viral URI with cough [facility] Work Phone: History general Narrative - Reported Note Date & Type Note Facility History general Narrative - Reported Type Medical History Scoliosis Medical History fibromyalgia Medical History mood disorder Surgical History etopic wit h the removal of her tube and ovary. Left side. 2005 Hospitalization History see above Hospitalization History child [facility] Other Summary Purpose Family History Relationship Condition [...] and content) DATE CREATED AUTHOR 08/18/2021 [facility] DATE CREATED AUTHOR AUTHOR'S ORGANIZ ATION 09/13/2021 [facility] REASON FOR VISIT (unrecogniz ed [...] BE BASED ON THE PRIMARY CLINICAL RECORDS. [facility] [employer] [facility]. provides no warranty or guarantee of the accuracy or completeness of information in this document.
--- NOTE | 2024-07-11 14:25 | PC.NURSE ---
area to back have large red bumps, some appear to have pus to middle like a pimple, none draining at this time.
--- NOTE | 2024-07-11 14:53 | ED_ITS ---
HPI HPI - General Adult General Chief complaint: Skin/Abscess/Foreign Body Stated complaint: RASH Time Seen by Provider: 07/11/24 14:15 Source: patient Mode of arrival: walk-in History of Present Illness HPI narrative: 39-year-old female presents for rash which is on her upper back. It has been there for several weeks and she was prescribed some topical antibiotic cream and it did not seem to get better. Its gotten worse and she is concerned so she came in here today. She has had no exposure to chemicals and it is not elsewhere on her body except very minimally on her left upper chest. Related Data Home Medications ?Medication ?Instructions ?Recorded ?Confirmed dextromethorphan HBr 5 mg/5 mL 30 mg PO ONCE PRN cough 06/06/24 06/06/24 oral syrup ([facility] DayQuil Cough) Previous Rx's ?Medication ?Instructions ?Recorded amoxicillin 875 mg-potassium 1 tab PO Q12H #20 tabs 06/06/24 clavulanate 125 mg tablet rsuzkndprhtfjxq-kahyizvhbnhqgzg-NU 10 ml PO Q6H PRN cold symptoms 06/06/24 2 mg-30 mg-10 mg/5 mL oral syrup #200 mL (Bromfed DM) fluconazole 150 mg tablet 150 mg PO QWEEK 2 days #2 tabs 06/06/24 mupirocin 2 % topical ointment 1 applic topical BID #15 grams 06/06/24 doxycycline hyclate 100 mg capsule 100 mg PO BID 10 days #20 caps 07/11/24 Allergies Allergy/AdvReac Type Severity Reaction Status Date / Time No Known Drug Allergies Allergy Verified 06/06/24 14:58 Opioid HPI Opioid Management Most Recent Opioid Data: No Data to Display Review of Systems ROS Narrative A ten point review of systems is negative except as noted above. PFSH PFSH Social History Little interest or pleasure in doing things: not at all Feeling down, depressed, or hopeless: not at all Exam Narrative Exam Narrative: Nurses note and vital signs reviewed and patient is not hypoxic. General: The patient appears well and in no apparent distress. Patient is resting comfortably on cart. Skin: Warm, dry, no pallor noted. There is a rash present on the upper half of her back. She has numerous raised red areas some with whiteheads. No drainage. No abscess. Head: Normocephalic, atraumatic Eye: Normal conjunctiva, no drainage Ears, Nose, Mouth, and Throat: oral mucosa is moist. Nares patent. Cardiovascular: Regular Rate and Rhythm Respiratory: Patient is in no distress, no accessory muscle use, lungs are clear to auscultation, no wheezing, rales or rhonchi Back: non-tender GI: Soft and nontender Musculoskeletal: The patient has no evidence of calf tenderness, no pitting edema, symmetrical pulses noted bilaterally Neurological: A&O, normal speech Psychiatric: Cooperative Constitutional Vital Signs, click to edit/add: Last Vital Signs Temp 98.1 F 07/11/24 14:16 Pulse 70 07/11/24 14:16 Resp 18 07/11/24 14:16 BP 122/70 07/11/24 14:16 Pulse Ox 98 07/11/24 14:16 O2 Del Method Room Air 07/11/24 14:16 Course Vital Signs Vital signs: Vital Signs Temperature 98.1 F 07/11/24 14:16 Pulse Rate 70 07/11/24 14:16 Respiratory Rate 18 07/11/24 14:16 Blood Pressure 122/70 07/11/24 14:16 Pulse Oximetry 98 07/11/24 14:16 Oxygen Delivery Method Room Air 07/11/24 14:16 Temperature 98.1 F 07/11/24 14:16 Pulse Rate 70 07/11/24 14:16 Respiratory Rate 18 07/11/24 14:16 Blood Pressure 122/70 07/11/24 14:16 Pulse Oximetry 98 07/11/24 14:16 Oxygen Delivery Method Room Air 07/11/24 14:16 Medical Decision Making [facility] Narrative Medical decision making narrative: My clinical impression is that she has acne. She was given IV vancomycin here and prescribed doxycycline. Treatment diagnosis and follow-up were discussed with the patient. Differential Diagnosis Differential Diagnosis: Folliculitis, acne, cellulitis Discharge Plan Discharge Chief Complaint: Skin/Abscess/Foreign Body Clinical Impression: Acne Patient Disposition: Home, Self-Care Time of Disposition Decision: 15:02 Condition: Good Mode of Transportation: Private Vehicle Prescriptions / Home Meds: New doxycycline hyclate 100 mg capsule 100 mg PO BID 10 Days Qty: 20 0RF No Action [facility] DayQuil Cough 5 mg/5 mL syrup 30 mg PO ONCE PRN (Reason: cough) mupirocin 2 % ointment 1 applic topical BID Qty: 15 0RF xsyhzxdkdpnomqz-ebljzmsqq-SI [Bromfed DM] 2-30-10 mg/5 mL syrup 10 ml PO Q6H PRN (Reason: cold symptoms) Qty: 200 0RF amoxicillin-pot clavulanate 875-125 mg tablet 1 tab PO Q12H Qty: 20 0RF fluconazole 150 mg tablet 150 mg PO QWEEK 2 Days Qty: 2 0RF Rx Instructions: 1 tab to be taken at the beginning and end of the course of antibiotics Print Language: Bulgarian Instructions: Folliculitis (ED) Referrals: Physician,Non-Staff, MD [Primary Care Provider] - 1 week
[2024-07-11] MEDS: VANCOMYCIN HCL 1,000 MG in 0.9 % SODIUM CHLORIDE 250 ML 250 MG IV (15:07)
== END 2024-07-11 16:17 | disposition home or self-care (01) ==
PROVIDERS: Emergency Provider Emergency Medicine
DX: L70.9 Acne, unspecified (principal)
CPT/HCPCS: 96365; 99284; J3370

== ENCOUNTER 2024-09-01 08:53 | Outpatient (OUT) | payer MEDICAID, SELFPAY ==
--- OUTSIDE RECORDS SUMMARY | 2024-09-01 09:16 | XMS_ITS | CCD ---
Author Organization [facility] Care Team Providers Care [employer] Car Loader Name Role Phone HOUSE, SR CLEMENCIA Perkins [...] bee venom Drug allergy (disorder) 5 [facility] (1 source) Honey Drug allergy (disorder) 5 [facility] (1 source) Bee pollen Allergy to substance 4 [facility] (1 source) bee venom protein (honey bee) Allergy to substance 4 Unknown Reaction [facility] Medications Current Medications Medication Drug Class(es) Dates [...] pyogenes Org specific cx Ql (Throat) Positive [facility] Other Quick Strep [facility] Other HPV DNA High Riskon 08-12-19 22 HPV Interp Normal [facility] Comment on above: Result Comment: This [...] purposes. Performed By: #### H PVH #### [address] [address] Electric Distribution Checker: Izaiah Garza MD HPV Type 16 Not detected [facility] Comment on above: Performed By: #### HPVH #### [address] [address] [employer] Distribution Checker: Izaiah Garza MD HPV Type 18 Not detected [facility] Comment on above: Performed By: #### HPVH #### [facility] [address] [place] [id number] [employer] Checker: Izaiah Garza MD Other High Risk HPV Not detected [facility] Comment on above: Performed By: #### HPVH #### [address] [address] [employer] Distribution Checker: Izaiah Garza MD HPV DNA High Riskon 08-10- 22 Source .GENITAL - NOT SPECIFIED [facility] Comment on above: Performed By: #### HPVH #### [facility] [address] [place] [address] [employer] Checker: Izaiah Garza MD HPV DNA High Riskon 08-09-20 22 HPV Sample .THIN PREP [facility] Comment on above: Performed By: #### HPVH #### [address] [address] [employer] Checker: Izaiah Garza MD Cytologyon 08-07-2021 Cytology (NOTE) INTERPRETATION Cervical material, (ThinPrep vial, Imaging-assisted review): Specimen Adequacy: Satisfactory for evaluation. -Endocervical/transfor mation zone component is absent. Descriptive Diagnosis: Negative for intraepithelial lesion or malignancy. 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 Rec: [id number] Path Number: [id number] [facility] ANATOMIC PATHOLOGY [address] [place] [id number] [facility] Comment on above: Performed By: #### PPPVP #### [facility] [address] [place] [address] [employer] Checker: Izaiah Garza MD Pap IG, rfx Aptima HPV, rfx 16/18,45on 10-05-2020 . . Normal [facility] Comment on above: Result Comment: Performed at: WB Performed By: #### P APHR2A #### [facility] [address] [place] [address] Tamara Mars DIAGNOSIS: Comment Normal [facility] Comment on above: Result Comment: NEGATIVE FOR INTRAEPITHE LIAL LESION OR MALIGNANCY. Performed at: WB Performed By: #### P APHR2A #### [facility] [address] [address] Tamara Madisyn HPV Aptima Negative Normal Negative [facility] Comment on above: Result Comment: This nucleic acid amplif ication test detects fourteen high-risk HPV types (16,18,31,33,35,39,45,51,52,56,58,59,66,68) without differentiation. Performed at: =G Performed By: #### P APHR2A #### [facility] [address] [place] [address] Tamara Mars Methodology: Comment Normal [facility] Comment on above: Result Comment: This liquid based ThinPr ep(R) pap test was screened with the use of an image guided system. Performed at: WB Performed By: #### P APHR2A #### [facility] [address] [place] [address] Tamara Madisyn Note: Comment Normal [facility] Comment on above: Result Comment: The Pap [...] WB Performed By: #### P APHR2A #### [facility] [address] [place] [address] Tamara Madisyn Performed by: Comment Normal [facility] Comment on above: Result Comment: Jumana guzman, [employer] (ASCP) Performed at: WB Performed By: #### P APHR2A #### [facility] [address] [place] [address] Tamara Mars Specimen adequacy: Comment Normal [facility] Comment on above: Result Comment: Satisfactory for evaluat ion. Endocervical and/or squamous metaplastic cells (endocervical component) are present. Performed at: WB Performed By: #### P APHR2A #### [facility] [address] [place], [place] [address] Tamara Mars Vital Signs Date Time Vital Sign Value Performing Clinician Facility 01-14-2024 14:53-0400 Body height 162.56 cm [facility] 01-14-2024 14:53-0400 Body mass index (BMI) [Ratio] 27.4 kg/m2 [facility] 01-14-2024 14:53-0400 Body temperature 97.8 [degF] [facility] 01-14-2024 14:53-0400 Body weight 72.63 kg [facility] 01-14-2024 14:53-0400 Diastolic blood pressure 74 mm[Hg] [facility] 01-14-2024 14:53-0400 Heart rate 77 /min [facility] 01-14-2024 14:53-0400 Respiratory rate 17 /min [facility] 01-14-2024 14:53-0400 SaO2% (BldA) [Mass fraction] 98 % [facility] 01-14-2024 14:53-0400 Systolic blood pressure 122 mm[Hg] [facility] 11-13-2023 18:40-0400 Body height 165.1 cm [facility] 11-13-2023 18:40-0400 Body mass index (BMI) [Ratio] 25.1 kg/m2 [facility] 11-13-2023 18:40-0400 Body temperature 98.4 [degF] [facility] 11-13-2023 18:40-0400 Body weight 68.49 kg [facility] 11-13-2023 18:40-0400 Heart rate 69 /min [facility] 11-13-2023 18:40-0400 Respiratory rate 18 /min [facility] 11-13-2023 18:40-0400 SaO2% (BldA) [Mass fraction] 99 % [facility] 09-01-2023 17:19-0400 Body height 165.1 cm [facility] 09-01-2023 17:19-0400 Body mass index (BMI) [Ratio] 26.9 kg/m2 [facility] 09-01-2023 17:19-0400 Body temperature 98.4 [degF] [facility] 09-01-2023 17:19-0400 Body weight 73.25 kg [facility] 09-01-2023 17:19-0400 Diastolic blood pressure 75 mm[Hg] [facility] 09-01-2023 17:19-0400 Heart rate 77 /min [facility] 09-01-2023 17:19-0400 Respiratory rate 18 /min [facility] 09-01-2023 17:19-0400 SaO2% (BldA) [Mass fraction] 99 % [facility] 09-01-2023 17:19-0400 Systolic blood pressure 119 mm[Hg] [facility] 01-29-2023 13:55-0400 Body height 165.1 cm Ivy Lizzeth Other [employer] [facility] [employer] Other 01-29-2023 13:55-0400 Body mass index (BMI) [Ratio] 27.95 kg/m2 Ivy Lizzeth Other [facility] Other 01-29-2023 13:55-0400 Body temperature 97.7 [degF] Ivy Lizzeth Other [facility] Other 01-29-2023 13:55-0400 Body weight 76.2 kg Ivy Lizzeth Other [facility] Other 01-29-2023 13:55-0400 Diastolic blood pressure 74 mm[Hg] Ivy Lizzeth Other [facility] Other 01-29-2023 13:55-0400 Respiratory rate 18 /min Ivy Moreau Other [facility] Other 01-29-2023 13:55-0400 SaO2% (BldA) [Mass fraction] 98 % Ivy Moreau Other [facility] Other 01-29-2023 13:55-0400 Systolic blood pressure 124 mm[Hg] Ivy Moreau Other [facility] Other 11-16-2022 12:25-0400 Body height 165.1 cm Georgie Chow Other [facility] Other 11-16-2022 12:25-0400 Body mass index (BMI) [Ratio] 27.39 kg/m2 Georgie Chow Other [facility] Other 11-16-2022 12:25-0400 Body temperature 98.1 [degF] Georgie Chow Other [facility] Other 11-16-2022 12:25-0400 Body weight 74.66 kg Georgie Chow Other [facility] Other 11-16-2022 12:25-0400 Respiratory rate 18 /min Georgie Chow Other [facility] Other 11-16-2022 12:25-0400 SaO2% (BldA) [Mass fraction] 97 % Georgie Chow Other [facility] Other Encounters Encounter Date Encounter Type Care Provider Facility Start: 01-14-2024 End: 01-14-2024 [facility] Work Phone: Start: 01-14-2024 End: 01-14-2024 Patient encounter procedure [facility] Work Phone: Start: 11-13-2023 End: 11-13-2023 ambulatory [facility] Work Phone: Start: 11-13-2023 End: 11-13-2023 Patient encounter procedure [facility] Work Phone: Start: 09-01-2023 End: 09-01-2023 ambulatory [facility] Work Phone: Start: 09-01-2023 End: 09-01-2023 Patient encounter procedure [facility] Work Phone: Start: 01-29-2023 End: 01-29-2023 ambulatory Ivy Mroeau Other [facility] Other Start: 01-29-2023 Office outpatient vi sit 15 minutes Ivymaikel Moreau [facility] Start: 11-16-2022 End: 11-16-2022 ambulatory Georgie Chow Other [facility] Other Start: 11-16-2022 Office outpatient vi sit 15 minutes Georgie Chow [facility] Start: 09-11-2021 End: 09-11-[address] CLEMENCIA ZAMORA Facility:[facility] Start: 08-07-2021 End: 08-08-2021 ambulatory SR CLEMENCIA ZAMORA [facility] Start: 04-08-2021 End: 04-08-[address] VAISHALI KELLY Facility:[facility] Start: 01-23-2021 End: 01-23-[address] VAISHALI KELLY Facility:[facility] Start: 12-06-2020 End: 12-06-[address] WINNIE DEL ANGEL Facility:[facility] Start: 10-02-2020 End: 10-02-2020 ambulatory EMY CEDEÑO Facility:[facility] Payers Date Payer Category Payer Unknown [id number] 2.16.8 [id number] 1987 Unknown [id number] 2.16.84 [id number] 1987 Unknown [id number] 2.16.84 [id number] 1987 Unknown [id number] 2.16.84 [id number] 1987 Unknown [id number] 2.16.84 [id number] 1987 Unknown [id number] 2.16.84 [id number] 1959 Unknown [id number] 1959 Unknown [id number] Medicaid [id number]. [id number] Self-pay Self Pay [id number] Social History Date Type Detail Facility Unknown if ever smoked [facility] Other Sex Assigned At Sex Assigned At Bir th [facility] Other Start: 09-01-2023 Tobacco smoking status [facility] Smoker (finding) [facility] Start: 1985 Sex Assigned At Female F [facility] Evaluation note 01-29-2023 Note Date & Type [...] and subcutaneous tissue, unspecified (ICD-10 - L08.9) [facility] Other Evaluation note 11-16-2022 Note Date & [...] fever. Patient/parent verbalized understanding of treatment plan. [facility] Other Evaluation note Note Date & Type Note Facility Evaluation note No assessment information availa [facility] Work Phone: Evaluation note Note Date & Type Note Facility Evaluation note Diagnosis Onset Date Dental infection acute Hidradenitis suppurativa acu te Jaw pain acute [facility] [place] Work Phone: Evaluation note Note Date & Type Note Facility Evaluation note Diagnosis Onset Date Abscess of buttock, left acu te Viral URI with cough [facility] Work Phone: History general Narrative - Reported Note Date & Type Note Facility History general Narrative - Reported Type Medical History Scoliosis Medical History fibromyalgia Medical History mood disorder Surgical History etopic wit h the removal of her tube and ovary. Left side. 2005 Hospitalization History see above Hospitalization History child [facility] Other Summary Purpose Family History Relationship Condition [...] and content) DATE CREATED AUTHOR 08/18/2021 [facility] DATE CREATED AUTHOR AUTHOR'S ORGANIZ [...] BE BASED ON THE PRIMARY CLINICAL RECORDS. [facility] [employer] [facility]. provides no warranty or guarantee of the accuracy or completeness of information in this document.
[2024-09-01 09:19] LABS: Basophils Absolute Auto 0.1 10^3/uL (0.0-0.1); Basophils Percent Auto 1.7 % (0.2-2.0); Eosinophils Absolute Auto 0.1 10^3/uL (0.0-0.7); Eosinophils Percent Auto 1.3 % (0.9-7.0); Hematocrit 35.8 % (36.0-48.0); Hemoglobin 12.1 g/dL (12.0-16.0); Immature Granulocytes Abs Auto 0.02 10^3/uL (0.00-0.03); Immature Granulocytes Pct Auto 0.4 % (0.0-0.5); Lymphocytes Absolute Auto 1.4 10^3/uL (1.2-3.8); Lymphocytes Percent Auto 26.9 % (20.5-60.0); Mean Corpuscular HGB Conc 33.8 g/dL (29.9-35.2); Mean Corpuscular Hemoglobin 30.2 pg (26.7-34.0); Mean Corpuscular Volume 89.3 fL (81.0-99.0); Mean Platelet Volume 9.7 fL (9.5-13.5); Monocytes Absolute Auto 0.5 10^3/uL (0.3-0.8); Monocytes Percent Auto 9.8 % (1.7-12.0); Neutrophils Absolute Auto 3.2 10^3/uL (1.4-6.5); Neutrophils Percent Auto 59.9 % (43.0-75.0); Platelet Count 265 10^3/uL (150-450); Red Blood Count 4.01 10^6/uL (4.20-5.40); Red Cell Distribution Width 12.7 % (11.0-15.0); White Blood Count 5.3 10^3/uL (4.0-11.0)
[2024-09-01 10:03] LABS: Alanine Aminotransferase 20 U/L (14-59); Albumin Globulin Ratio 0.9; Albumin Level 3.4 g/dL (3.4-5.0); Alkaline Phosphatase 81 U/L (46-116); Anion Gap 10.9; Aspartate Amino Transferase 14 U/L (15-37); BUN Creatinine Ratio 13.3; Bilirubin Total 0.4 mg/dL (0.2-1.0); Calcium 8.8 mg/dL (8.5-10.1); Carbon Dioxide 29.2 mmol/L (21.0-32.0); Chloride 105 mmol/L (98-107); Chol HDL Ratio 2.6; Cholesterol 115 mg/dL (<=200); Estimated GFR (African America >60 (>=60 mL/min/1.73m^2); Estimated GFR (Non-African Ame >60 (>=60 mL/min/1.73m^2); Glucose 91 mg/dL (74-106); HDL Cholesterol 44 mg/dL (40-60); LDL Cholesterol Calculated 67.8 mg/dL; Potassium 4.1 mmol/L (3.5-5.1); Sodium 141 mmol/L (136-145); Total Protein 7.4 g/dL (6.4-8.2); Triglycerides 16 mg/dL (<=150); VLDL CHOLESTEROL 3.2 mg/dL
== END 2024-09-01 08:54 | disposition home or self-care (01) ==
LOC: LAB 08:56
PROVIDERS: Visit Provider Nurse Practitioner Family
DX: Z13.220 Encounter for screening for lipoid disorders (principal); Z76.89 Persons encountering health services in other specified circumstances
CPT/HCPCS: 36415; 80053; 80061; 85025